=== PATIENT | male | born 1950 | race Caucasian/White ===

== ENCOUNTER → 2017-10-04 | Outpatient (CLI) | payer BC, MEDICARE ==
[~2017-10-04] MED LIST: ASPIR 8181 MG PO; COZAAR 50 MG TA50 M2; FELDENE20 MG; FISH OIL 1,001000 M2; FLOMAX0.4 MG PO; GLUCOSAMINE HC500 MG; LIPITOR10 MG PO; NORVASC5 MG; OXYCODON-ACETA1 EAC1 PO; VIT D 3; WELLBUTRIN SR150 MG; ZOCOR 10 MG TAB10 MG; ZOFRAN ODT4 MG PO
--- NOTE | 2017-10-09 17:33 | EEG ---
[address] [address] EEG STUDY REPORT Name: REI BOUDREAUX Room: [facility]#: [id number] Admission: 10/04/17 Attend Phys: Opal Franks Discharge: Date of : 54 Report #: [id number] THIS REPORT FOR: //name// CC: Francois Swenson DATE OF SERVICE: 10/04/2017 DATE OF EE10/04/2017. This patient is being evaluated for syncope. EEG was done by placing the electrodes by standard 10-20 system of electrode placement. Both referential and sequential montages were used for recording. Background activity in this patient's EEG is about 9 Hz and 30 microvolt. It is intermixed with theta range slowing on both sides. The patient went to sleep, that is associated with bilaterally symmetrical sleep spindle and vertex sharp waves. Photic stimulation is unremarkable. Throughout the record, no active epileptiform activity was noticed. IMPRESSION: This patient's EEG is within normal limit. Thank you very much for this referral. <ELECTRONICALLY SIGNED> By: Travon Rivera MD 10/09/17 1733 1105 [id number] Rivera MD /nt
== END ==
LOC: M.CRD 11:16
DX: R55 Syncope and collapse (principal)

== ENCOUNTER → 2017-10-09 | Outpatient (CLI) | payer BC, MEDICARE ==
[2017-10-09] VITALS (18 sets, daily range): BP systolic 75–135; BP diastolic 41–100
--- NOTE | 2017-10-11 15:26 | TST ---
[place] [address] TREADMILL STRESS TEST Name: REI BOUDREAUX Room: [facility]#: [id number] Admission: 10/09/17 Attend Phys: Brianna Swenson Discharge: Date of : 54 Date of Service: 10/09/17 1825 Report #: [id number] THIS REPORT FOR: //name// CC: Francois Swenson DO DATE OF SERVICE: 10/09/2017 The patient demonstrated sinus rhythm and mildly elevated blood pressure at rest with a blood pressure of 133/100. He was placed in a tilting position without development of significant bradycardia or hypotension. After administration of nitrates, the patient developed nausea, diaphoresis, tingling sensation and progressive hypotension with blood pressure falling to 75/42 with loss of consciousness. The patient was placed in a supine position, had a gradual lutheran of normal consciousness, normal blood pressure and normal heart rate with his pressure rising initially to 100/76 with a pulse of 103 and subsequently to 110/83 with a pulse of 98. Of note, the time he demonstrated his most profound hypotension, his heart rate was 124. IMPRESSION: 1. Abnormal tilt table test with development of significant hypotension after nitrate administration; there was not concomitant bradycardia. 2. The patient developed nausea, diaphoresis, tingling sensation, ultimately syncope after nitrate administration during the tilt table test. 3. No bradycardia provoked by tilting or nitrate administration. 4. Thus, the test was abnormal with hemodynamic instability created by nitrate administration without concomitant bradycardia. <ELECTRONICALLY SIGNED> By: Venkat Reyes MD, [facility] 10/11/17 1526 1825 0447 Venkat Reyes MD, FAC /nt
== END | disposition home or self-care (01) ==
LOC: M.CL 10-03 12:00
DX: R55 Syncope and collapse (principal); Z79.82 Long term (current) use of aspirin; Z79.899 Other long term (current) drug therapy; Z98.890 Other specified postprocedural states

== ENCOUNTER → 2018-05-18 | Outpatient (CLI) | payer BC, MEDICARE | LOC: M.ULTRA 10:00 | DX: E04.1 Nontoxic single thyroid nodule (principal); I12.9 Hypertensive chronic kidney disease with stage 1 through stage 4 chronic kidney disease, or unspecified chronic kidney disease; N18.3 Chronic kidney disease, stage 3 (moderate); C61 Malignant neoplasm of prostate; C67.9 Malignant neoplasm of bladder, unspecified; F41.9 Anxiety disorder, unspecified; F32.9 Major depressive disorder, single episode, unspecified; E78.5 Hyperlipidemia, unspecified; M19.90 Unspecified osteoarthritis, unspecified site; Z88.8 Allergy status to other drugs, medicaments and biological substances; Z68.39 Body mass index [BMI] 39.0-39.9, adult; Z82.49 Family history of ischemic heart disease and other diseases of the circulatory system; Z83.3 Family history of diabetes mellitus ==

== ENCOUNTER → 2018-05-30 | Outpatient (CLI) | payer BC, MEDICARE ==
--- NOTE | 2018-06-01 13:09 | PATH ---
[address] [address] PATHOLOGY RPT PROCEDURE Name: REI BOUDREAUX Room: [facility]..#: [id number] Admission: 05/30/18 Date of : 54 Discharge: Report #: [id number] Path Case #: [id number] Note [facility] Accession Number: [id number] TESTS RESULT FLAG UNITS REF RANGE LAB Clinician Provided Cytology Information No. of containers..01 Other (Miscellaneous) Source: RT THYROID DIAGNOSIS: RT THYROID NEGATIVE FOR MALIGNANT CELLS. BETHESDA CATEGORY II. SPECIMEN CONSISTS OF BENIGN FOLLICULAR CELLS, HEMOSIDERIN-LADEN MACROPHAGES, COLLOID, AND BLOOD. THIS PATTERN IS CONSISTENT WITH A COLLOID NODULE. THIS INTERPRETATION INCLUDES EVALUATION OF A CELL BLOCK. Pathologist ICD10: 02 E04.1 Signed out by: 02 Franklin Alvarado MD, Pathologist NPI- [id number] Performed by: Praful Echols, Exchange Clerk ([facility]) Gross description: 01 15ML, RED, CLOUDY /LCS FLAG LEGEND: L-Low Normal,H-High Normal,LL-Alert Low,HH-Alert High <-Panic Low,>-Panic High,A-Abnormal,AA-Critical Abnormal Performed at: [address] [place] [address] Tim Leo MD, [address] [place] [phone] Franklin Alvarado MD, Specimen Comment: A courtesy copy of this report has been sent to Specimen Comment: [phone]. Specimen Comment: Report sent to DR BENTON Specimen Comment: A duplicate report has been generated due to demographic updates. Performed at: [address], [place], [place] [id number] MD Tim Leo MD Phone: [phone]
== END | disposition home or self-care (01) ==
LOC: M.ULTRA 08:07
DX: E04.1 Nontoxic single thyroid nodule (principal); Z79.899 Other long term (current) drug therapy; Z79.82 Long term (current) use of aspirin

== ENCOUNTER 2019-11-11 10:05 | Observation (INO) | payer BC, MEDICARE ==
[~2019-11-11] VITALS: Ht 188 cm; Wt 116.1 kg
[~2019-11-11 10:05] MED LIST changes: +COZAAR 50 MG TA50 M1 PO; -COZAAR 50 MG TA50 M2
[2019-11-11 10:17] VITALS: BP 166/100
[2019-11-11 10:38] LABS: ABSOLUTE EOSINOPHILS 0.1 thou/uL (0.0-0.7); ABSOLUTE LYMPHOCYTES 1.2 thou/uL (0.8-5.3); ABSOLUTE MONOCYTES 0.6 thou/uL (0.0-1.2); ABSOLUTE NEUTROPHILS 5.2 thou/uL (1.6-8.1); BASOPHILS 0.4 %; HEMATOCRIT 47.5 % (42.0-52.0); HEMOGLOBIN 16.9 gm/dL (14.0-18.0); LYMPHOCYTES 16.9 %; MCHC 35.6 g/dL (28.0-37.0); MCV 87.1 fL (80.0-100.0); MONOCYTES 8.2 %; MPV 6.4 fl. (7.2-11.1); NUCLEATED RBCS 0 /100WBC; PLATELET COUNT* 182 thou/uL (150-400); POLYS 72.5 %; RBC 5.46 mil/uL (4.50-6.00); RDW-CV 14.2 % (10.5-14.5); WBC 7.1 thou/uL (4.0-11.0)
[2019-11-11 10:44] LABS: CALCIUM 9.4 mg/dL (8.5-10.1); CREATININE 1.4 mg/dL (0.6-1.3)
[2019-11-11 10:47] LABS: APTT 28.1 Seconds (25.0-31.3); INR 1.1; PROTIME 10.9 Seconds (9.20-11.50)
[2019-11-11 10:53] LABS: ALBUMIN 4.1 g/dL (3.4-5.0); TOTAL BILIRUBIN 0.7 mg/dL (<0.1-1.0); TOTAL PROTEIN 7.6 g/dL (6.4-8.2)
--- NOTE | 2019-11-11 15:06 | EKG ---
[place] [address] ELECTROCARDIOGRAM REPORT Name: REI BOUDREAUX Room: [address] M.R.#: [id number] Admission: 11/11/19 Attend Phys: Iain Noriega, Discharge: Date of : 54 Date of Service: 11/11/19 1034 Report #: [id number] THIS REPORT FOR: //name// [facility] ED Test Date: 2019-11-11 Test Time: 10:34:57 Pat Name: REI BOUDREAUX Department: Room: [facility] Gender: M Rn Gynecology: JENNIFER : 1950 Requested By: Raza Cheung Order Number: [id number] MD: Venkat Reyes Measurements Intervals Osborn Rate: 79 P: 29 SC: 201 QRS: 7 QRSD: 98 T: 42 QT: 374 QTc: 429 Interpretive Statements Sinus rhythm Abnormal R-wave progression, early transition No previous ECG available for comparison Electronically Signed On 11-11-2019 15:06:15 CDT by Venkat Reyes [email or web address] <ELECTRONICALLY SIGNED> By: Venkat Reyes MD, [facility] 11/11/19 1506 1034 1034 Venkat Reyes MD, [facility] /EPI
--- NOTE | 2019-11-11 15:45 | 2DMMODE ---
[place] [address] 2 D/M-MODE ECHOCARDIOGRAM Name: REI BOUDREAUX Room: [address] M.R.#: [id number] Admission: 11/11/19 Attend Phys: Iain Noriega, Discharge: Date of : 54 Date of Service: 11/11/19 1545 Report #: [id number] THIS REPORT FOR: cc: Brianna Swenson,Brianna Bolton,Venkat Guo MD [facility] ~ APPROVED REPORT Study performed: 11/11/2019 14:49:18 EXAM: Comprehensive 2D, Doppler, and color-flow Echocardiogram Patient Location: In-Patient Room #: er Status: routine BSA: 2.41 HR: 74 bpm BP: 166/100 mmHg Rhythm: NSR Other Information Study Quality: Good Indications CVA/TIA Echo Enhancing Agent Indication: Rule out Shunt Agent(s) / Amount(s) Used: Agitated Saline 10 cc 2D Dimensions IVSd: 12.66 (7-11mm) LVOT Diam: 20.21 (18-24mm) LVDd: 35.70 mm PWd: 9.59 (7-11mm) Ascending Ao: 41.52 (22-36mm) LVDs: 25.37 (25-40mm) Aortic Root: 41.49 mm Volumes Left Atrial Volume (Systole) LA ESV Index: 14.90 mL/m2 Aortic Valve AoV Peak Meet.: 1.36 m/s AO Peak Gr.: 7.36 mmHg LVOT Max P.30 mmHg AO Mean Gr.: 4.05 mmHg LVOT Mean P.44 [place] [address] 2 D/M-MODE ECHOCARDIOGRAM Name: REI BOUDREAUXY Room: [address] M.R.#: [id number] Admission: 11/11/19 Attend Phys: Iain Noriega, Discharge: Date of : 54 Date of Service: 11/11/19 1545 Report #: [id number] LVOT Max V: 1.35 m/s AO V2 VTI: 23.18 cm LVOT Mean V: 0.84 m/s MICHELLE (VTI): 3.58 cm2 LVOT V1 VTI: 25.90 cm Mitral Valve E/A Ratio: 0.62 MV Decel. Time: 289.79 ms MV E Max Meet.: 0.62 m/s MV PHT: 84.04 ms MVA (PHT): 2.62 cm2 TDI E/Lateral E': 7.75 E/Medial E': 8.86 Medial E' Meet.: 0.07 m/s Lateral E' Meet.: 0.08 m/s Pulmonary Valve PV Peak Meet.: 1.05 m/s PV Peak Gr.: 4.42 mmHg Left Ventricle The left ventricle is normal size. There is normal LV segmental wall motion. Mild concentric left ventricular hypertrophy. Left ventricular systolic function is normal. The left ventricular ejection fraction is within the normal range. LVEF is 65%. Grade I - abnormal relaxation pattern. Right Ventricle The right ventricle is normal size. The right ventricular systolic function is normal. Atria The left atrium size is normal. The interatrial septum is intact with no evidence for an atrial septal defect. The right atrium size is normal. Aortic Valve Mild aortic valve sclerosis. Trace aortic regurgitation. There is no aortic valvular stenosis. Mitral Valve The mitral valve is normal in structure. There is no mitral valve regurgitation noted. No evidence of mitral valve stenosis. Tricuspid Valve The tricuspid valve is normal in structure. Trace tricuspid regurgitation. Unable to [place] [address] 2 D/M-MODE ECHOCARDIOGRAM Name: REI BOUDREAUX Room: [address] M.R.#: [id number] Admission: 11/11/19 Attend Phys: Iain Noriega, Discharge: Date of : 54 Date of Service: 11/11/19 1545 Report #: [id number] Pulmonic Valve The pulmonary valve is normal in structure. Trace pulmonic regurgitation. Great Vessels Aortic root is mildly dilated. The ascending aorta is mildly dilated. IVC is normal in size and collapses >50% with inspiration. Pericardium There is no pericardial effusion. <Conclusion> The left ventricle is normal size. Mild concentric left ventricular hypertrophy. Left ventricular systolic function is normal. The left ventricular ejection fraction is within the normal range. LVEF is 65%. Grade I - abnormal relaxation pattern. The right ventricle is normal size. The left atrium size is normal. Mild aortic valve sclerosis. Trace aortic regurgitation. There is no aortic valvular stenosis. The mitral valve is normal in structure. The tricuspid valve is normal in structure. Aortic root is mildly dilated. IVC is normal in size and collapses >50% with inspiration. There is no pericardial effusion. The ascending aorta is mildly dilated. There is normal LV segmental wall motion. The interatrial septum is intact with no evidence for an atrial septal defect. <ELECTRONICALLY SIGNED> By: Venkat Reyes MD, FACC 11/11/19 1545 1545 1545 Venkat Reyes MD, FACC /INF
[2019-11-11 18:31] VITALS: BP 129/88
[2019-11-11 22:25] VITALS: BP 102/70
[2019-11-11] MEDS ORDERED: TRULICITY1.5 MG/0.5 SUBQ (22:37)
[2019-11-11 23:30] VITALS: BP 114/86
[2019-11-12] VITALS: BP 92/63
[2019-11-12 04:00] VITALS: BP 101/68
[2019-11-12 05:39] LABS: CALCIUM 8.8 mg/dL (8.5-10.1); CREATININE 1.7 mg/dL (0.6-1.3); POTASSIUM 4.3 mmol/L (3.5-5.1)
[2019-11-12 08:00] VITALS: BP 116/80
[2019-11-12] MEDS ORDERED: MECLIZINE HCL25 MG PO (10:19)
[2019-11-12 10:55] LABS: CHOLESTEROL 126 mg/dL (<200); HDL CHOLESTEROL 31 mg/dL (>40); LDL CHOLESTEROL 74 mg/dL (<100); SERUM ASSESSMENT Clear; TC:HDL 4.1 Ratio (Not establshd); TRIGLYCERIDE 108 mg/dL (<150); VLDL 22 mg/dL (<40)
[2019-11-12 11:48] VITALS: BP 126/84
[2019-11-12 16:41] VITALS: BP 110/79
[2019-11-12 17:17] VITALS: BP 110/79
[2019-11-13 02:06] LABS: GLYCOHEMOGLOBIN (HGB A1C) 5.5 % (4.8-5.6)
--- NOTE | 2019-11-14 18:46 | CON ---
[address] [address] CONSULTATION Name: REI BOUDREAUX Room: [address] Yovani Flowers#: [id number] Admission: 11/11/19 Attend Phys: Iain Noriega MD Discharge: 11/12/19 Date of : 54 Report #: [id number] THIS REPORT FOR: //name// cc: Brianna Swenson Linda J. DO ~ THIS REPORT FOR: //name// CC: Iain Swenson DATE OF SERVICE: 11/12/2019 HISTORY OF PRESENT ILLNESS: This is a 69-year-old male patient who said he had an acute onset of ataxia. He said he was wobbly and he was unable to walk. He said there was some dizziness, but it was not very pronounced. He said he had similar episodes in the past, but they were not that severe. He had a strong family history of myocardial infarctions. He follows up with Dr. Castanon for a cardiology followup. He had a cardiac cath done, which showed some disease, but he did not think there was any need for any intervention. He gets carotid Doppler on a regular basis and that shows only mild disease. REVIEW OF SYSTEMS: Indicate that he said that he is probably a diabetic, but he is not certain. He said he does have hypertension and he takes a couple of medications for hypertension. He had multiple stones, a bladder carcinoma was discovered. He had a prostate cancer and he had radiation for that. He does not have any reoccurrence of that. He denies any eye, , GI, musculoskeletal, constitutional, dermatological, hematological, psychiatric, throat, allergic symptom associated with present symptomatology. He is on Wellbutrin. It was his relevant 14-point review of systems. PAST MEDICAL HISTORY: Positive for dizziness, but that has not been that severe. FAMILY HISTORY: Positive for myocardial infarction. SOCIAL HISTORY: He drinks beer occasionally. He does not smoke. PHYSICAL EXAMINATION: Indicate he is alert, responsive, able to follow simple and complex command. His speech looks intact. Cranial nerve examination 2-12 looks unremarkable. There is no significant nystagmus in this patient. I can move his neck in multiple directions without any problem. His strength, sensation, reflexes and tones are symmetrical. His plantars are mute. He does not have any abnormality of the doxaqe-ls-glkj or cqzt-jf-xbzp. I did not make him walk. There is no meningeal sign. There is no carotid bruit. I could not look at the patient's fundus. Cardiac and respiratory examination clinically looks unremarkable. His pulses are somewhat difficult to feel, [place] [address] CONSULTATION Name: REI BOUDREAUX Room: [address] Yovani Flowers#: [id number] Admission: 11/11/19 Attend Phys: Iain Noriega MD Discharge: 11/12/19 Date of : 54 Report #: [id number] are palpable. LABORATORY DATA: His GFR is low at 40 and in fact it has gone lower. His TSH and vitamin B12 is unremarkable. His HDL is low. IMPRESSION AND PLAN: It is unlikely that there is any CVA in this patient, but he has such a strong family history for myocardial infarctions that is very desirable to do an MRI. MRI is apparently done, but is not available yet. We will try to locate it and see what it shows. If that is okay, I think it may be desirable to do an MRI of the C-spine to complete the workup. I discussed all of it with the patient and he wants to follow this plan. Thank you very much for this referral. <ELECTRONICALLY SIGNED> By: Travon Dunbar MD 11/14/19 1846 1210 1228Travon Dunbar MD /nt
== END 2019-11-12 18:15 | disposition home or self-care (01) ==
LOC: M.ERS 10:05 → M.TBA-ER 12:29 → M.2W 22:21
PROVIDERS: Emergency Medicine Emergency Medical Services; ADMIT Internal Medicine; ATTEND Internal Medicine
DX: R42 Dizziness and giddiness (principal); R26.81 Unsteadiness on feet; I12.9 Hypertensive chronic kidney disease with stage 1 through stage 4 chronic kidney disease, or unspecified chronic kidney disease; N18.2 Chronic kidney disease, stage 2 (mild); M19.90 Unspecified osteoarthritis, unspecified site; E66.9 Obesity, unspecified; Z68.32 Body mass index [BMI] 32.0-32.9, adult; Z79.82 Long term (current) use of aspirin; Z79.899 Other long term (current) drug therapy; Z20.828 Contact with and (suspected) exposure to other viral communicable diseases